=== PATIENT | male | born 1995 ===

== ENCOUNTER 2024-05-22 10:33 | Emergency (ER) | payer SELFPAY ==
[~2024-05-22] VITALS: Ht 182.9 cm; Wt 81.8 kg
[2024-05-22 10:50] VITALS: BP 154/83; PULSE 81; RESP 18; TEMP 98; O2SAT 99
== END 2024-05-22 11:10 | disposition left against medical advice (07) ==
LOC: EMS 10:33
DX: Z00.8 Encounter for other general examination (principal); F12.90 Cannabis use, unspecified, uncomplicated; F17.210 Nicotine dependence, cigarettes, uncomplicated
CPT/HCPCS: 99283; Z7502